=== PATIENT | male | born 1995 | race Caucasian/White ===

== ENCOUNTER 2019-04-18 15:43 | Emergency (ER) | payer OTHER, SELFPAY ==
[2019-02-08 11:25] VITALS: BMI 26.4
[2019-04-18 15:44] VITALS: BP 143/86; PULSE 95; RESP 16; TEMP 36.9; O2SAT 98; BMI 26.2
--- NOTE | 2019-04-18 15:55 | RAD_ITS ---
STUDY: X-RAY - RIGHT HAND REASON FOR EXAM: Male, 23 years old. Swollen and red knuckle of the third digit TECHNIQUE: 3 view(s) of the hand. COMPARISON: None. FINDINGS: Normal radiocarpal articulation. Normal distal radioulnar joint. Normal visualized carpal bones. Normal carpal articulations Normal carpometacarpal articulation of the thumb. Normal second through fifth carpometacarpal joints. Normal metacarpi. Normal metacarpophalangeal joint of the thumb. Normal interphalangeal joint of the thumb. Normal proximal and distal phalanges of the thumb. Normal metacarpophalangeal joints of the second through fifth fingers. Normal proximal and distal interphalangeal joints of the second through fifth fingers. Normal phalanges of the second through fifth fingers. The soft tissue structures are unremarkable. RAD/Hand Min 3 Views IMPRESSION: Normal x-ray examination of the hand. Electronically Signed: Dom Yadav DO at 16:09 EST Tel , Service support ,
--- NOTE | 2019-04-18 15:55 | ED.DCSUM_ITS ---
- ER Visit Summary Date of Service: 04/18/19 Chief Complaint: [Injury and pain to right hand] History of Present Illness: The patient is a 23 M [presents to the emergency department complaint of an injury to the right hand that he thinks may have occurred about a month ago. Patient states that he believes he may have banged his hand against the frame of his quad that he was working on. 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 Patient now having continued swelling over the third MCP joint and pain with range of motion. Patient feels like there is something moving there that should not be. Patient is right-hand dominant.] Physical Examination: [HEENT-PERRLA, EOMI. Cranial nerves II through XII grossly intact. TMs clear. Mucous membranes moist. No adenopathy. Cardiovascular-regular rate and rhythm without murmur or ectopy Lungs-clear to auscultation, chest wall stable without crepitus or subcu emphysema Abdomen-normoactive bowel sounds, soft, nontender, no rebound or rigidity, no peritoneal signs. Extremities-intact ?4, normal range of motion, normal pulses, atraumatic. Right hand-patient has soft tissue swelling noted over the third MCP joint. There is no obvious deformity. He has ability to flex and extend the digit without difficulty. Neurovascularly intact.] Test Results: [X-rays of the right hand obtained read by myself as no acute fractures. Soft tissue swelling around the third MCP joint.] Emergency Department Course and Treatment: [Patient refused an aluminum splint and refused an Patrick wrap.] Treatment Plan: [Will be referred to orthopedics for follow-up within next 5 to 7 days.] Disposition: [Discharged home in stable condition.] Impression: [Right hand contusion/sprain] This note was generated with [employer] dictation software. It may contain incorrect words, spelling, and punctuation that were not noted in review of the chart prior to signing ED Disposition - Plan for ED Patient: Referrals: Shaun Cisneros,Out of [Primary Care Provider] -
--- NOTE | 2019-04-18 16:10 | DCINST.ED_ITS ---
ED Disposition - Plan for ED Patient: Instructions: Sprain Finger, CONTUSION, Hand Referrals: [facility] Doctor,Out of [Primary Care Provider] - Fred Mendez DO [STAFF PHYSICIAN] - 5-7 Days
[2019-04-18 16:20] VITALS: RESP 15
== END 2019-04-18 16:24 | disposition home or self-care (01) ==
LOC: ED 16:24
PROVIDERS: Emergency Provider Emergency Medicine
DX: S60.221A Contusion of right hand, initial encounter (principal); S63.91XA Sprain of unspecified part of right wrist and hand, initial encounter; W22.8XXA Striking against or struck by other objects, initial encounter; Y93.9 Activity, unspecified; Y92.9 Unspecified place or not applicable; Y99.9 Unspecified external cause status; Z72.0 Tobacco use
CPT/HCPCS: 73130; 99282

== ENCOUNTER → 2020-03-23 10:38 | Outpatient (CLI) | payer OTHER, SELFPAY ==
[2020-03-22 10:14] VITALS: BMI 26.5
== END ==
PROVIDERS: Referring Provider Physician Assistant; Visit Provider Physician Assistant
DX: Z20.828 Contact with and (suspected) exposure to other viral communicable diseases (principal)
CPT/HCPCS: 87635; C9803; U0003

== ENCOUNTER → 2022-01-12 | Outpatient (CLI) | payer OTHER, SELFPAY ==
--- NOTE | 2022-01-12 08:49 | MRI_ITS ---
STUDY: MRI RIGHT KNEE REASON FOR EXAM: Male, 26 years old. TECHNIQUE: Standardized fat and water weighted pulse sequences were obtained in all 3 orthogonal planes. COMPARISON: None. FINDINGS: Normal medial meniscus. Normal hyaline cartilage of the medial femorotibial compartment. Small bone contusion of the inferior medial medial femoral condyle extending anteriorly. There is a near complete tear of the proximal one third of the medial collateral ligament with thickening and intermediate signal intensity on T1-weighted imaging and high signal seen on fat saturation/inversion recovery imaging. Normal distal semimembranosus, gracilis and semitendinosus tendons. Normal lateral meniscus. Normal hyaline cartilage of the lateral femorotibial compartment. Moderate bone contusion of the inferior lateral lateral femoral condyle. Small bone contusion of the superior lateral anterior tibial plateau. Normal proximal tibiofibular articulation. Normal lateral collateral (fibular) ligament. Normal popliteus tendon. Normal biceps femoris tendon. Normal anterior cruciate ligament (ACL). Normal posterior cruciate ligament (PCL). Normal congruent patellofemoral articulation. Normal hyaline cartilage of the patellofemoral compartment. Normal medial and lateral patellar retinaculum. Normal quadriceps tendon. Normal patellar tendon. Normal Hoffa''s fat pad. Small suprapatellar joint effusion with plica extending towards the suprapatellar bursa. The soft tissues are unremarkable. The otherwise visualized osseous structures are unremarkable. MRI/Lower Ext Joint Only (Routine) IMPRESSION: Near-complete or less likely complete tear proximal one third of the medial collateral ligament. Small suprapatellar joint effusion with plica extending across suprapatellar bursa. Bone contusions of the medial lateral femoral condyles and of the lateral tibial plateau detailed above. Electronically Signed: Александр Estrada MD, ИРИНА at 10:13 EDT ,
== END | disposition home or self-care (01) ==
PROVIDERS: PCP Physician Assistant; Referring Provider Orthopaedic Surgery Sports Medicine; Visit Provider Orthopaedic Surgery Sports Medicine
DX: S82.831A Other fracture of upper and lower end of right fibula, initial encounter for closed fracture (principal); S83.411A Sprain of medial collateral ligament of right knee, initial encounter; X58.XXXA Exposure to other specified factors, initial encounter
CPT/HCPCS: 73721